=== PATIENT | male | born 1965 | race Caucasian/White ===

== ENCOUNTER 2020-07-15 19:50 | Emergency (ER) | payer MEDICARE, MEDICAID ==
[2020-07-15 20:23] VITALS: BP 129/85; PULSE 119
--- NOTE | 2020-07-15 20:58 | EDM.PDOC ---
ED HPI GENERAL MEDICAL PROBLEM - General Chief Complaint: Laceration Stated Complaint: fall Time Seen by Provider: 07/15/20 20:30 Source of Information: Reports: Other (Staff from Shelter) History Limitations: Reports: Physical Impairment (Pervasive Developmental Disorder) - History of Present Illness INITIAL COMMENTS - FREE TEXT/NARRATIVE: Jeffery fell at the Shelter this evening, landing on his face. He has a minor abrasion of the nose, and a 3.5 cm laceration of his forehead. There was no LOC. His tetanus vax status is to be determined. Treatments METAL PLATER: Reports: Dressing(s) - Related Data Allergies Allergy/AdvReac Type Severity Reaction Status Date / Time haloperidol [From Haldol] Allergy Irritabilit Verified 12/28/15 17:50 y haloperidol lactate Allergy Irritabilit Verified 12/28/15 17:50 [From Haldol] y Home Meds: Home Meds Levothyroxine Sodium [Synthroid] 75 mcg PO DAILY 12/28/15 [History] atorvaSTATin [Lipitor] 40 mg PO BEDTIME 12/28/15 [History] cloZAPine 100 mg PO BEDTIME 12/28/15 [History] cloZAPine [Clozapine] 200 mg PO BEDTIME 12/28/15 [History] Past Medical History HEENT History: Reports: Other (See Below) Other HEENT History: grinds teeth Cardiovascular History: Reports: High Cholesterol Gastrointestinal History: Reports: Chronic Constipation Genitourinary History: Reports: Other (See Below) Other Genitourinary History: wears diaper only for accidents Musculoskeletal History: Reports: Other (See Below) Other Musculoskeletal History: scoliosis Neurological History: Reports: Seizure Psychiatric History: Reports: Autism, Bipolar, Developmental Delay Endocrine/Metabolic History: Reports: Hypothyroidism Dermatologic History: Reports: Seborrheic Dermatitis Other Dermatologic History: rosacea, seborrheic dermatitis - Past Surgical History HEENT Surgical History: Reports: None Cardiovascular Surgical History: Reports: None Neurological Surgical History: Reports: Scoliosis Other Neurological Surgeries/Procedures: kyphoscoliosis Musculoskeletal Surgical History: Reports: Other (See Below) Other Musculoskeletal Surgeries/Procedures:: andrews rods 10/1983, tight heel cords, bruxism ED ROS GENERAL - Review of Systems Review Of Systems: Unable To Obtain Reason Not Obtained: TMR, mute ED EXAM, SKIN/RASH Exam: See Below Exam Limited By: Physical Impairment (PDD) General Appearance: Alert, WD/WN, No Apparent Distress, Anxious Eye Exam: Bilateral Eye: EOMI, Normal Inspection, PERRL Ears: Normal External Exam Nose: Other (minor abrasion accross rostrum of nose) Throat/Mouth: Normal Oropharynx, No Airway Compromise Head: Facial Tenderness (3.5 cm linear laceration of forehead into hair line) Neck: Normal Inspection Respiratory/Chest: Lungs Clear Cardiovascular: Regular Rate, Rhythm Back Exam: Other (scoliosis) Extremities: Non-Tender Neurological: Alert, CN II-XII Intact, No Motor/Sensory Deficits Psychiatric: Normal Affect, Anxious Skin: Warm, Dry ED SKIN PROCEDURES - Laceration/Wound Repair Midline Forehead Appearance: Subcutaneous Distal NVT: Neuro & Vascular Intact Skin Prep: Chlorhexidine (Hibiciens) Exploration/Debridement/Repair: Wound Explored, No Foreign Material Found Closed with: Steri-Strips Lac/Wound length In cm: 3.5 Sterile Dressing Applied: Provider Tetanus Status Addressed: Yes Complications: No Course - Vital Signs Text/Narrative:: Patient tolerated procedure well. Last Recorded V/S: Last Vital Signs Temp 36.3 C 07/15/20 20:07 Pulse 119 H 07/15/20 20:07 Resp 18 07/15/20 20:07 BP 129/85 07/15/20 20:07 Pulse Ox 98 07/15/20 20:07 Departure - Departure Time of Disposition: 20:46 Disposition: DC/[facility]fer to [facility] Condition: Good Clinical Impression: Laceration of forehead without complication Qualifiers: Encounter type: initial encounter Qualified Code(s): S01.81XA - Laceration without foreign body of other part of head, initial encounter - Discharge Information *PRESCRIPTION DRUG MONITORING PROGRAM REVIEWED*: Not Applicable *COPY OF PRESCRIPTION DRUG MONITORING REPORT IN PATIENT RICCO: Not Applicable Referrals: Concetta Jewell MD [Primary Care Provider] - Forms: ED Department Discharge Sepsis Event Note (ED) - Evaluation Sepsis Screening Result: No Definite Risk - Focused Exam Vital Signs: Vital Signs Temp Pulse Resp BP Pulse Ox 07/15/20 20:07 36.3 C 119 H 18 129/85 98 - Problem List & Annotations (1) Laceration of forehead without complication SNOMED Code(s): 434279775 Code(s): S01.81XA - LACERATION W/O FOREIGN BODY OF OTH PART OF HEAD, INIT ENCNTR Status: Acute Annotation/Comment:: Keep wound clean and dry, leave dressings and SteriStrips in place for 5-7 days. Qualifiers: Encounter type: initial encounter Qualified Code(s): S01.81XA - Laceration without foreign body of other part of head, initial encounter - Problem List Review Problem List Initiated/Reviewed/Updated: Yes - Assessment/Plan Plan: Follow up with PCP if needed.
== END 2020-07-15 20:51 ==
LOC: FB.ED 19:50
DX: S01.81XA Laceration without foreign body of other part of head, initial encounter (principal); E78.00 Pure hypercholesterolemia, unspecified; M41.9 Scoliosis, unspecified; F84.0 Autistic disorder; F31.9 Bipolar disorder, unspecified; E03.9 Hypothyroidism, unspecified; Z88.8 Allergy status to other drugs, medicaments and biological substances; Z79.899 Other long term (current) drug therapy; W19.XXXA Unspecified fall, initial encounter
CPT/HCPCS: 12013; 99282; 99284

== ENCOUNTER 2020-09-24 12:46 | Emergency (ER) | payer MEDICARE, MEDICAID ==
--- NOTE | 2020-09-24 13:08 | EDM.PDOC ---
ED HPI GENERAL MEDICAL PROBLEM - General Chief Complaint: Head Injury Time Seen by Provider: 09/24/20 13:05 Source of Information: Reports: Other (prison staff) History Limitations: Reports: Other (Patient with chronic condition with organic brain syndrome and cannot provide any information.) - History of Present Illness INITIAL COMMENTS - FREE TEXT/NARRATIVE: 54-year-old male with autism and organic brain syndrome who is a resident of a local intermediate who presents to the emergency department via intermediate staff after he fell coming out of the shower. He was being assisted by the intermediate staff and apparently he slipped and his legs buckled and he fell backwards striking his head on the shower floor which is tiled and sustained a laceration to his occiput. The bleeding has been controlled with direct pressure. There was no loss of consciousness. The patient did cry initially but now appears in minimal discomfort unless you touch the area. He is nonverbal and is really not able to give us any information. The intermediate staff gives all the history. The patient appears at 2-4/10 level of discomfort by Valdes Preeti faces when you touch the area. He is moving all of his extremities normally. He is responding normally and appears to be neurologically at his baseline according to the intermediate staff member. No other apparent injuries. This occurred at 12:05 PM and the patient was brought from the intermediate to the emergency department via private vehicle. There are no other associated signs or symptoms. There are no other modifying factors. Onset: Today (12:05 PM.) Duration: Constant Location: Reports: Head Quality: Reports: Other (Unknown) Improves with: Reports: None Worsens with: Reports: Other (Palpation) Context: Reports: Trauma Associated Symptoms: Reports: No Other Symptoms (No other symptoms known.) Treatments LEAD GENERATOR: Reports: Other (see below) - Related Data Allergies Allergy/AdvReac Type Severity Reaction Status Date / Time haloperidol lactate Allergy Unknown Irritabilit Verified 09/24/20 12:53 [From Haldol] y haloperidol [From Haldol] Allergy Irritabilit Verified 09/24/20 12:53 y Home Meds: Home Meds Levothyroxine Sodium [Synthroid] 75 mcg PO DAILY 12/28/15 [History] atorvaSTATin [Lipitor] 40 mg PO BEDTIME 12/28/15 [History] cloZAPine 100 mg PO BEDTIME 12/28/15 [History] cloZAPine [Clozapine] 200 mg PO BEDTIME 12/28/15 [History] Past Medical History HEENT History: Reports: Other (See Below) Other HEENT History: Bruxism Cardiovascular History: Reports: High Cholesterol Gastrointestinal History: Reports: Chronic Constipation Musculoskeletal History: Reports: Other (See Below) Other Musculoskeletal History: scoliosis Neurological History: Reports: Seizure Psychiatric History: Reports: Autism, Bipolar, Developmental Delay Endocrine/Metabolic History: Reports: Hypothyroidism Dermatologic History: Reports: Seborrheic Dermatitis Other Dermatologic History: rosacea, seborrheic dermatitis - Past Surgical History Neurological Surgical History: Reports: Scoliosis (Carson rods) Other Neurological Surgeries/Procedures: kyphoscoliosis Musculoskeletal Surgical History: Reports: Other (See Below) Other Musculoskeletal Surgeries/Procedures:: carson rods 10/1983 Social & Family History - Tobacco Use Tobacco Use Status *Q: Never Tobacco User - Caffeine Use Caffeine Use: Reports: None - Living Situation & Occupation Living situation: Reports: Extended Care Facility (Lives in a local intermediate.) Occupation: Disabled ED ROS GENERAL - Review of Systems Review Of Systems: Unable To Obtain (This was not able to be obtained from the patient secondary to his autism and verbal state. The intermediate staff was able to answer some questions and they were detailed below.) Reason Not Obtained: Autism. Nonverbal. Constitutional: Reports: No Symptoms HEENT: Reports: No Symptoms Respiratory: Reports: No Symptoms GI/Abdominal: Reports: No Symptoms : Reports: Incontinence (At times) Skin: Reports: Wound (Laceration to occipital scalp) Neurological: Reports: Other (No loss of consciousness.) Hematologic/Lymphatic: Reports: Other (No anticoagulation.) Immunologic: Reports: Other (Last tetanus immunization was in 2018, so he is up-to-date.) ED EXAM, HEAD INJURY - Physical Exam Exam: See Below Exam Limited By: No Limitations General Appearance: Alert, WD/WN, No Apparent Distress Head: Scalp Lacerations, Scalp Swelling, Scalp Tenderness Nexus Criteria: No: Posterior, Midline Cervical Tenderness, Evidence of Intoxication, Altered Level of Consciousness (Patient is appropriately responsive and interactive and neurologically at his baseline. Is no tenderness with palpation along his posterior neck and has full and active range of motion in his neck without any problems.), Focal Neurological Deficit, Painful Distraction Injuries Eyes: Bilateral Eye: EOMI, Normal Inspection Ears: Normal External Exam, Hearing Grossly Normal Nose: Normal Inspection, Normal Mucousa, No Blood Throat/Mouth: Normal Inspection, Normal Lips, Normal Oropharynx, Normal Voice, No Airway Compromise Neck: Non-Tender, Full Range of Motion, Normal Alignment, Normal Inspection Respiratory: No Respiratory Distress, Lungs Clear, Normal Breath Sounds, No Accessory Muscle Use, Chest Non-Tender Cardiovascular: Normal Peripheral Pulses, Regular Rate, Rhythm, No Murmur GI/Abdominal Exam: Normal Bowel Sounds, Soft, Non-Tender Back Exam: No: Paraspinal Tenderness, Vertebral Tenderness Extremities: Normal Inspection, Normal Range of Motion, Non-Tender, No Pedal Edema, Normal Capillary Refill Neurologic: air deodorizer servicer II-XII nml As Tested, No Motor/Sensory Deficits, Alert Skin: Normal Color, Other (5 cm laceration to occipital scalp to the subcutaneous tissue. The galea was intact.) ED LACERATION/WOUND & LETTY PROC - Laceration/Wound Repair Midline Occipital Head Appearance: Subcutaneous, Clean Distal NVT: Neuro & Vascular Intact Anesthetic Type: Other (None) Skin Prep: Saline Exploration/Debridement/Repair: Wound Explored (No crepitus. No depression. No foreign bodies.) Closed with: Zee # of Sutures: 6 (Laceration is 5 centimeters) Tetanus Status Addressed: Other (Patient was up-to-date with last tetanus immunization in 2018.) Complications: No Course - Vital Signs Last Recorded V/S: Last Vital Signs Temp 36.3 C 09/24/20 12:54 Pulse 101 H 09/24/20 12:54 Resp 20 09/24/20 12:54 BP 134/74 09/24/20 12:54 Pulse Ox - Orders/Labs/Meds Orders: Active Orders 24 hr Category Date Time Status Vaccines to be Administered [RC] PER UNIT ROUTINE Care 09/24/20 13:26 Active Meds: Medications Discontinued Medications Generic Name Dose Route Start Last Admin Trade Name Freq PRN Reason Stop Dose Admin Diphtheria/Tetanus/Acell Pertussis 0.5 ml 09/24/20 13:25 09/24/20 13:31 Boostrix IM 09/24/20 13:26 Not Given .ONCE ONE - Re-Assessments/Exams Free Text/Narrative Re-Assessment/Exam: 09/24/20 13:20: After informed verbal consent from the intermediate staff, the patient's scalp wound was closed using skin zee. 6 zee were applied. No anesthesia was used secondary to the patient not able as tolerated and they're being really no difference in the amount of pain and discomfort associated with placing the anesthesia and placing the zee. There were no concerning neurologic signs or symptoms. The patient is awake and alert and appropriately responsive and interactive and at his baseline. Therefore, no head CT or cervical spine CT was needed or indicated. I discussed this with the intermediate staff and they were in agreement with this as well. Wound care instructions were given. Staple removal in 7 days. Departure - Departure Time of Disposition: 13:40 Disposition: DC/Tfer to [facility] Condition: Good (Improved) Clinical Impression: Fall from slipping on wet surface Qualifiers: Encounter type: initial encounter Qualified Code(s): W01.0XXA - Fall on same level from slipping, tripping and stumbling without subsequent striking against object, initial encounter Head contusion Qualifiers: Encounter type: initial encounter Contusion of head detail: scalp Qualified Code(s): S00.03XA - Contusion of scalp, initial encounter Occipital scalp laceration Qualifiers: Encounter type: initial encounter Qualified Code(s): S01.01XA - Laceration without foreign body of scalp, initial encounter - Discharge Information Instructions: Fall Prevention in the Home, Adult, [id number], Head Injury, Adult, [id number], Sutures, Zee, or Adhesive Wound Closure, [id number] Forms: ED Department Discharge Additional Instructions: You should wash his hair today to get all the blood out and then after today do not get the wound area wet for the next 3 days. After 3 days, you may get the wound wet but do not immerse the wound in water until the zee are out. Staple removal in 7 days. Back to the emergency department for vomiting, change in his level of responsiveness, any signs of infection or any other concerning sign or symptom. Sepsis Event Note (ED) - Evaluation Sepsis Screening Result: No Definite Risk - Focused Exam Vital Signs: Vital Signs Temp Pulse Resp BP 09/24/20 12:54 36.3 C 101 H 20 134/74 - My Orders Last 24 Hours: My Active Orders 09/24/20 13:26 Vaccines to be Administered [RC] PER UNIT ROUTINE - Assessment/Plan Last 24 Hours: My Active Orders 09/24/20 13:26 Vaccines to be Administered [RC] PER UNIT ROUTINE
[2020-09-24] MEDS ORDERED: Diphtheria,Pertussis(Acell),Tetanus Vaccine 0.5 ML Syringe IM ONE (13:25)
[2020-09-24 13:42] VITALS: BP 123/80; PULSE 102
== END 2020-09-24 13:50 ==
LOC: FB.ED 12:46
DX: S01.01XA Laceration without foreign body of scalp, initial encounter (principal); E78.00 Pure hypercholesterolemia, unspecified; E03.9 Hypothyroidism, unspecified; M41.9 Scoliosis, unspecified; F84.0 Autistic disorder; Z88.8 Allergy status to other drugs, medicaments and biological substances; Z79.899 Other long term (current) drug therapy; W01.10XA Fall on same level from slipping, tripping and stumbling with subsequent striking against unspecified object, initial encounter
CPT/HCPCS: 12002; 99282; 99282-25

== ENCOUNTER 2020-11-16 14:31 | Emergency (ER) | payer MEDICARE, MEDICAID ==
[2020-11-16] MEDS ORDERED: traMADol 50 MG Tab PO ONE (14:32)
[2020-11-16] MEDS: LORazepam 2 MG/ML SDV IM STA (15:10)
[2020-11-16] MEDS: OLANZapine 10 MG Vial IM STA (15:10)
--- NOTE | 2020-11-16 15:12 | EDM.PDOC ---
ED HPI GENERAL MEDICAL PROBLEM - General Stated Complaint: FELL Time Seen by Provider: 11/16/20 14:45 Source of Information: Reports: Other (caregiver) History Limitations: Reports: No Limitations - History of Present Illness INITIAL COMMENTS - FREE TEXT/NARRATIVE: Patient presented to the ED because of head and facial injury after falling. He apparently tripped and fell face down to the carpet. There is no LOC after the fall. There is nasal deformity and nasal bleed. History taking is difficult because patient is non-communicative and agitated. - Related Data Allergies Allergy/AdvReac Type Severity Reaction Status Date / Time haloperidol lactate Allergy Unknown Irritabilit Verified 11/16/20 16:28 [From Haldol] y haloperidol [From Haldol] Allergy Irritabilit Verified 11/16/20 16:28 y Home Meds: Home Meds Levothyroxine Sodium [Synthroid] 75 mcg PO DAILY 12/28/15 [History] atorvaSTATin [Lipitor] 20 mg PO BEDTIME 12/28/15 [History] cloZAPine 100 mg PO DAILY 12/28/15 [History] cloZAPine [Clozapine] 200 mg PO BEDTIME 12/28/15 [History] Benztropine [Cogentin] 0.5 mg PO BID 09/24/20 [History] Cholecalciferol (Vitamin D3) [Vitamin D3] 1,000 unit PO DAILY 09/24/20 [History] Docusate Sodium [Colace] 100 mg PO BID 09/24/20 [History] KCl/Na Sulf,Bicarb,Cl/PEG 3351 [GoLytely] 15 ml PO BID 09/24/20 [History] LORazepam [Lorazepam] 2 mg DAILY PRN 09/24/20 [History] Lanolin/Mineral Oil [Eucerin Original Lotion] 1 applic DAILY 09/24/20 [History] Menthol/Selenium Sulfide [Selsun Blue 1% Shampoo] 1 applic MOTH 09/24/20 [History] Multivits w-Fe,Other Min/Lut [Theratrum Complete] 1 each PO BEDTIME 09/24/20 [History] bisacodyL [Dulcolax] 10 mg RC Q3D PRN 09/24/20 [History] Magnesium Hydroxide [Milk of Magnesia] 15 ml PO BEDTIME 11/16/20 [History] Magnesium Hydroxide [Milk of Magnesia] 120 ml PO ASDIRECTED PRN 11/16/20 [History] traMADol [Ultram] 50 mg PO Q6H PRN #15 tab 11/16/20 [Rx] Past Medical History HEENT History: Reports: Other (See Below) Other HEENT History: Bruxism Cardiovascular History: Reports: High Cholesterol Gastrointestinal History: Reports: Chronic Constipation Genitourinary History: Reports: Other (See Below) Other Genitourinary History: wears diaper only for accidents Musculoskeletal History: Reports: Other (See Below) Other Musculoskeletal History: scoliosis Neurological History: Reports: Seizure Psychiatric History: Reports: Autism, Bipolar, Developmental Delay Endocrine/Metabolic History: Reports: Hypothyroidism Dermatologic History: Reports: Seborrheic Dermatitis Other Dermatologic History: rosacea, seborrheic dermatitis - Past Surgical History Neurological Surgical History: Reports: Scoliosis (Carson rods) Other Musculoskeletal Surgeries/Procedures:: carson rods 10/1983 Social & Family History - Family History Family Medical History: No Pertinent Family History - Caffeine Use Caffeine Use: Reports: None - Living Situation & Occupation Living situation: Reports: Extended Care Facility (Lives in a local snf.) Occupation: Disabled ED ROS GENERAL - Review of Systems Review Of Systems: See Below Constitutional: Reports: No Symptoms HEENT: Reports: Nosebleed, Nose Pain Respiratory: Reports: No Symptoms Cardiovascular: Reports: No Symptoms Endocrine: Reports: No Symptoms GI/Abdominal: Reports: No Symptoms : Reports: No Symptoms Musculoskeletal: Reports: No Symptoms Skin: Reports: No Symptoms Neurological: Reports: No Symptoms ED EXAM, HEAD INJURY - Physical Exam Exam: See Below Exam Limited By: No Limitations General Appearance: Other (agitated) Head: Atraumatic, Normocephalic Ears: Normal External Exam, Normal Canal, Hearing Grossly Normal, Normal TMs Nose: Normal Inspection, Normal Mucousa, Nasal Tenderness Throat/Mouth: Normal Inspection, Normal Lips, Normal Teeth, Normal Gums, Normal Oropharynx, Normal Voice Neck: Non-Tender, Full Range of Motion, Normal Alignment, Normal Inspection Respiratory: No Respiratory Distress, Lungs Clear, Normal Breath Sounds, No Accessory Muscle Use, Chest Non-Tender Cardiovascular: Normal Peripheral Pulses, Regular Rate, Rhythm, No Edema, No Gallop, No JVD, No Murmur GI/Abdominal Exam: Normal Bowel Sounds, Soft, Non-Tender, No Organomegaly Back Exam: Normal Inspection, Full Range of Motion Extremities: Normal Inspection, Normal Range of Motion, Non-Tender Neurologic: No Motor/Sensory Deficits, Alert, Normal Mood/Affect, Oriented x 3 Skin: Normal Color, Warm/Dry Course - Vital Signs Text/Narrative:: head and Facial CT-see result Ativan 1 mg IM x1 Zyprexa 10 mg IM x1 Ativan 3 mg po x1 Versed liquid 4 mg po x1 Consult with Dr Bojorquez ENT will follow up tomorrow Last Recorded V/S: Last Vital Signs Temp 37.2 C 11/16/20 14:31 Pulse 101 H 11/16/20 18:58 Resp 18 11/16/20 18:58 BP 109/67 11/16/20 18:58 Pulse Ox 97 11/16/20 18:58 - Orders/Labs/Meds Orders: Active Orders 24 hr Category Date Time Status Head wo Cont [CT] Stat Exams 11/16/20 14:53 Taken Max Facial Sinus wo Cont [CT] Stat Exams 11/16/20 14:53 Taken Meds: Medications Discontinued Medications Generic Name Dose Route Start Last Admin Trade Name Freq PRN Reason Stop Dose Admin Lorazepam 1 mg 11/16/20 14:53 11/16/20 15:10 Lorazepam 2 Mg/Ml Sdv IM 11/16/20 14:54 1 mg NOW STA Administration Lorazepam 3 mg 11/16/20 15:41 11/16/20 15:50 Lorazepam 1 Mg Tab PO 11/16/20 15:42 3 mg ONETIME ONE Administration Midazolam HCl 4 mg 11/16/20 16:26 11/16/20 16:30 Midazolam Oral Soln 10 Mg/5 Ml Ud Cup PO 11/16/20 16:27 4 mg NOW STA Administration Olanzapine 10 mg 11/16/20 14:53 11/16/20 15:10 Olanzapine 10 Mg Vial IM 11/16/20 14:54 10 mg NOW STA Administration Departure - Departure Time of Disposition: 18:45 Disposition: Home, Self-Care 01 Condition: Good Clinical Impression: Nasal fracture - Discharge Information Prescriptions: traMADol [Ultram] 50 mg PO Q6H PRN #15 tab PRN Reason: Pain Instructions: Nasal Fracture, [id number], Tramadol tablets, Head Injury, Adult, [id number] Referrals: John Ramirez MD [Primary Care Provider] - Forms: ED Department Discharge Additional Instructions: Please read discharge instructions on nasal fracture Take tramadol 50 mg with tylenol 500 mg every 6 hours as needed for pain Call ENT c/o Dr Bojorquez for a follow up visit @ [phone] - My Orders Last 24 Hours: My Active Orders 11/16/20 14:53 Head wo Cont [CT] Stat Max Facial Sinus wo Cont [CT] Stat - Assessment/Plan Last 24 Hours: My Active Orders 11/16/20 14:53 Head wo Cont [CT] Stat Max Facial Sinus wo Cont [CT] Stat
[2020-11-16] MEDS: LORazepam 1 MG Tab PO ONE (15:50)
[2020-11-16] MEDS: Midazolam Oral Soln 10 MG/5 ML UD Cup PO STA (16:30)
[2020-11-16 19:21] VITALS: BP 109/67; PULSE 101
== END 2020-11-16 19:00 | disposition home or self-care (01) ==
LOC: FB.ED 14:31
DX: S02.2XXA Fracture of nasal bones, initial encounter for closed fracture (principal); E78.00 Pure hypercholesterolemia, unspecified; M41.9 Scoliosis, unspecified; E03.9 Hypothyroidism, unspecified; Z88.8 Allergy status to other drugs, medicaments and biological substances; Z79.899 Other long term (current) drug therapy; W01.0XXA Fall on same level from slipping, tripping and stumbling without subsequent striking against object, initial encounter
CPT/HCPCS: 70450; 70486; 96372; 99283; A9270; J2060; J3490

== ENCOUNTER 2021-04-22 18:46 | Emergency (ER) | payer MEDICARE, MEDICAID ==
[2021-04-22 18:55] VITALS: PULSE 84
--- NOTE | 2021-04-22 19:31 | EDM.PDOC ---
ED HPI GENERAL MEDICAL PROBLEM - General Chief Complaint: ENT Problem Stated Complaint: BROKEN NOSE Time Seen by Provider: 04/22/21 19:10 Source of Information: Reports: Other (Caregivers from shelter) History Limitations: Reports: Other (Patient has severe autism, mental retardation, nonverbal) - History of Present Illness INITIAL COMMENTS - FREE TEXT/NARRATIVE: 55-year-old gentleman with past medical history significant for several falls fell while trying to get up from dinner and injured his nose. Patient's past medical history significant for severe autism, severe mental retardation, he is nonverbal. He has a history of falling. He has had several surgeries due to injuries from falling. He did express pain due to the fact that he had some tears after his fall. He was very upset. Not lose consciousness. - Related Data Allergies Allergy/AdvReac Type Severity Reaction Status Date / Time haloperidol lactate Allergy Unknown Irritabilit Verified 04/22/21 18:52 [From Haldol] y haloperidol [From Haldol] Allergy Irritabilit Verified 04/22/21 18:52 y Home Meds: Home Meds Levothyroxine Sodium [Synthroid] 75 mcg PO DAILY 12/28/15 [History] atorvaSTATin [Lipitor] 20 mg PO BEDTIME 12/28/15 [History] cloZAPine [Clozapine] 200 mg PO BEDTIME 12/28/15 [History] Benztropine [Cogentin] 0.5 mg PO BID 09/24/20 [History] Cholecalciferol (Vitamin D3) [Vitamin D3] 1,000 unit PO DAILY 09/24/20 [History] Docusate Sodium [Colace] 100 mg PO BID 09/24/20 [History] LORazepam [Lorazepam] 2 mg DAILY PRN 09/24/20 [History] Lanolin/Mineral Oil [Eucerin Original Lotion] 1 applic DAILY 09/24/20 [History] Menthol/Selenium Sulfide [Selsun Blue 1% Shampoo] 1 applic MOTH 09/24/20 [History] Multivits w-Fe,Other Min/Lut [Theratrum Complete] 1 each PO BEDTIME 09/24/20 [History] bisacodyL [Dulcolax] 10 mg RC Q3D PRN 09/24/20 [History] Magnesium Hydroxide [Milk of Magnesia] 15 ml PO BEDTIME 11/16/20 [History] Magnesium Hydroxide [Milk of Magnesia] 120 ml PO ASDIRECTED PRN 11/16/20 [History] traMADol [Ultram] 50 mg PO Q6H PRN #15 tab 11/16/20 [Rx] Famotidine 20 mg PO BID 04/22/21 [History] Lactulose 45 gm PO BID 04/22/21 [History] OLANZapine [Zyprexa] 5 mg PO ASDIRECTED PRN 04/22/21 [History] polyethylene glycoL 3350 [MiraLAX] 17 gm PO DAILY 04/22/21 [History] Past Medical History HEENT History: Reports: Other (See Below) Other HEENT History: Bruxism Cardiovascular History: Reports: High Cholesterol Gastrointestinal History: Reports: Chronic Constipation Genitourinary History: Reports: Urinary Incontinence, Other (See Below) Other Genitourinary History: wears diaper only for accidents Musculoskeletal History: Reports: Other (See Below) Other Musculoskeletal History: scoliosis Neurological History: Reports: Seizure Psychiatric History: Reports: Autism, Bipolar, Developmental Delay Endocrine/Metabolic History: Reports: Hypothyroidism Dermatologic History: Reports: Seborrheic Dermatitis Other Dermatologic History: rosacea, seborrheic dermatitis - Past Surgical History HEENT Surgical History: Reports: None Cardiovascular Surgical History: Reports: None Neurological Surgical History: Reports: Scoliosis Other Neurological Surgeries/Procedures: kyphoscoliosis Musculoskeletal Surgical History: Reports: Other (See Below) Other Musculoskeletal Surgeries/Procedures:: andrews rods 10/1983 Social & Family History - Family History Family Medical History: No Pertinent Family History - Tobacco Use Tobacco Use Status *Q: Never Tobacco User - Caffeine Use Caffeine Use: Reports: None - Recreational Drug Use Recreational Drug Use: No - Living Situation & Occupation Living situation: Reports: Extended Care Facility (Lives in a local shelter.) Occupation: Disabled Review of Systems - Review of Systems Review Of Systems: See Below Constitutional: Reports: No Symptoms Eyes: Reports: No Symptoms Ears: Reports: No Symptoms Nose: Reports: Pain, Previous Injury Mouth/Throat: Reports: No Symptoms Respiratory: Reports: No Symptoms Cardiovascular: Reports: No Symptoms GI/Abdominal: Reports: No Symptoms Genitourinary: Reports: No Symptoms Musculoskeletal: Reports: Neck Pain Skin: Reports: Bruising, Lesions Neurological: Reports: No Symptoms, Other Psychiatric: Reports: Confusion, Mood Lability, Anxiety, Agitation ED EXAM, GENERAL - Physical Exam Exam: See Below Exam Limited By: Uncooperative General Appearance: Alert, Anxious Eye Exam: Bilateral Eye: EOMI Nose: No Blood, Nasal Deformity, Other (Patient of the bilateral facial bones shows no movement of the bones but the patient did react by pushing my hands away). No: Nasal Drainage Throat/Mouth: Other (Abrasion on the bridge of the nose with ecchymosis, swelling, the nose/septum are deviated towards the right, no bleeding or discharge at this time) Head: Other (Visual inspection shows several scars on the superior centerline of the forehead from previous falls/injuries) Neck: Other (Surgical scar just to the right of center line anterior neck from history of cervical spinal surgery, palpation of the anterior, lateral, posterior neck without significant reaction from the patient) Respiratory/Chest: No Respiratory Distress, Lungs Clear Cardiovascular: Normal Peripheral Pulses, Regular Rate, Rhythm, No Murmur, Other (Heart sounds are distant and difficult to auscultate) Peripheral Pulses: 2+: Radial (L), Radial (R), Dorsalis Pedis (L), Dorsalis Pedis (R) GI/Abdominal: Normal Bowel Sounds, Non-Tender Back Exam: Normal Inspection Extremities: Normal Inspection Neurological: Other (Caregivers report baseline. Patient reacts appropriately t o questions and physical exam and was able to turn his head and gaze of his eyes to follow my finger with large motions) Psychiatric: Anxious, Other (Patient has history of severe mental retardation and autism, patient is at baseline according to caregivers) Skin Exam: Other (Superficial abrasion on the forehead and bridge of the nose) Course - Vital Signs Text/Narrative:: Patient was able to turn his head and alter gaze of his eyes appropriately. Patient was able to drink a cup of water without discomfort or choking. Last Recorded V/S: Last Vital Signs Temp 36.9 C 04/22/21 18:46 Pulse 84 04/22/21 18:46 Resp 18 04/22/21 18:46 BP Pulse Ox Departure - Departure Time of Disposition: 19:35 Disposition: Home, Self-Care 01 Clinical Impression: Nasal fracture, Facial contusion - Discharge Information *PRESCRIPTION DRUG MONITORING PROGRAM REVIEWED*: Not Applicable *COPY OF PRESCRIPTION DRUG MONITORING REPORT IN PATIENT RICCO: Not Applicable Instructions: Nasal Fracture, [id number], Contusion, [id number] Additional Instructions: You can use ice and you can alternate Tylenol and ibuprofen giving 1 medication every 2 hours for pain while awake. Follow-up with primary care physician if patient has continuing symptoms of pain, discomfort, bleeding, difficulty breathing. Sepsis Event Note (ED) - Evaluation Sepsis Screening Result: No Definite Risk - Focused Exam Vital Signs: Vital Signs Temp Pulse Resp 04/22/21 18:46 36.9 C 84 18
== END 2021-04-22 19:45 | disposition home or self-care (01) ==
LOC: FB.ED 18:46
DX: S02.2XXA Fracture of nasal bones, initial encounter for closed fracture (principal); S00.81XA Abrasion of other part of head, initial encounter; E78.00 Pure hypercholesterolemia, unspecified; E03.9 Hypothyroidism, unspecified; Z88.8 Allergy status to other drugs, medicaments and biological substances; Z79.899 Other long term (current) drug therapy; W01.0XXA Fall on same level from slipping, tripping and stumbling without subsequent striking against object, initial encounter
CPT/HCPCS: 99283

== ENCOUNTER 2022-02-25 12:51 | Emergency (ER) | payer MEDICARE, MEDICAID ==
[2022-02-25] MEDS ORDERED: LORazepam 1 MG Tab PO ONE ×2 (13:13→13:57)
[2022-02-25] MEDS ORDERED: LORazepam 1 MG Tab ONE (14:00)
[2022-02-25 16:12] VITALS: BP 139/92; PULSE 102
== END 2022-02-25 15:15 | disposition home or self-care (01) ==
LOC: FB.ED 12:51
DX: S00.03XA Contusion of scalp, initial encounter (principal); E78.00 Pure hypercholesterolemia, unspecified; E03.9 Hypothyroidism, unspecified; Z79.899 Other long term (current) drug therapy; Z88.5 Allergy status to narcotic agent; W01.0XXA Fall on same level from slipping, tripping and stumbling without subsequent striking against object, initial encounter
CPT/HCPCS: 99283; 99285; A9270-GY

== ENCOUNTER 2023-02-20 14:03 | Inpatient (IN) | payer MEDICARE, MEDICAID ==
[2023-02-20] MEDS ORDERED: Flumazenil 0.1 MG/ML 5 ML MDV IVPUSH ONE ×4 (14:16→18:37)
[2023-02-20 14:53] LABS: BILIRUBIN,URINE NEGATIVE (NEGATIVE); GLUCOSE,URINE 100 mg/dL (NORMAL); KETONES,URINE NEGATIVE (NEGATIVE); LEUKOCYTE ESTERASE,URINE NEGATIVE (NEGATIVE); NITRITE,URINE NEGATIVE (NEGATIVE); OCCULT BLOOD,URINE NEGATIVE (NEGATIVE); PROTEIN,URINE NEGATIVE (NEGATIVE); UROBILINOGEN,URINE NORMAL (NEGATIVE)
[2023-02-20 14:55] LABS: APPEARANCE,URINE SLIGHTLY CLOUDY (CLEAR); BACTERIA,URINE RARE (NS); COLOR,URINE YELLOW (YELLOW); RBC,URINE 0-5 (0-5); SQUAMOUS EPITHELIAL CELLS,UR RARE (NS,R,O); WBC,URINE 0-5 (0-5)
[2023-02-20 14:56] LABS: AMORPHOUS SEDIMENT,URINE FEW
[2023-02-20 15:28] LABS: BASOPHILS PERCENT AUTO 0.2 % (0.3-3.8); BLOOD UREA NITROGEN,BUN 20 mg/dL (7-18); CALCIUM 9.6 mg/dL (8.6-10.2); CARBON DIOXIDE,CO2 32 mmol/L (21-32); CHLORIDE,CL 106 mmol/L (100-110); CREATININE 0.8 mg/dL (0.70-1.30); EOSINOPHILS PERCENT AUTO 0.1 % (0.1-6.8); ESTIMATED GFR 103 mL/min (>60); GLUCOSE RANDOM 121 mg/dL (80-116); HEMOGLOBIN 14.3 g/dL (12.9-17.7); LYMPHOCYTES ABSOLUTE AUTO 1.9 x10-3/uL (0.5-4.5); LYMPHOCYTES PERCENT AUTO 10.6 % (15.8-45.3); MEAN CORPUSCULAR HEMOGLOBIN 29.5 pg (27.0-33.3); MEAN CORPUSCULAR HGB CONC 33.2 g/dL (28.7-35.3); MEAN PLATELET VOLUME 8.7 fL (6.7-11.0); MONOCYTES ABSOLUTE AUTO 0.9 x10-3/uL (0.0-1.2); MONOCYTES PERCENT AUTO 5.1 % (5.5-15.2); NEUTROPHILS ABSOLUTE AUTO 14.7 x10-3/uL (1.7-6.9); PLATELET COUNT,PLT 169 x10(3)uL (117-477); POTASSIUM,K 3.9 mmol/L (3.5-5.3); RED BLOOD CELL COUNT 4.83 x10(6)uL (3.90-5.90); RED CELL DISTRIBUTION WIDTH 14.3 % (12.4-15.0); SODIUM,NA 145 mmol/L (135-145); WHITE BLOOD CELL COUNT,WBC 17.5 x10-3/uL (3.2-10.1)
[2023-02-20 15:35] LABS: A/G RATIO 0.8; ALANINE AMINOTRANSFERASE,ALT 60 U/L (12-36); ALBUMIN 3.3 g/dL (3.5-5.2); ALKALINE PHOSPHATASE 162 IU/L (56-112); ASPARTATE AMNIOTRANSFERASE,AST 42 IU/L (5-25); BILIRUBIN TOTAL 0.5 mg/dL (0.1-1.3); PROTEIN TOTAL,TP 7.4 g/dL (6.0-8.0)
[2023-02-20] MEDS ORDERED: Sodium Chloride 0.9% 1,000 ML IV ONE (15:36)
[2023-02-20] MEDS ORDERED: Iopamidol 755 Mg/ML 100 ML Bottle IV ONE (16:44)
[2023-02-20] MEDS: cefTRIAXone 1 GM Vial IVPUSH SCH (18:19)
[2023-02-20] MEDS: Azithromycin 500 MG in Sodium Chloride 0.9% 250 ML IV SCH (18:19)
[2023-02-20] MEDS ORDERED: Acetaminophen 325 MG Tab PO PRN (18:37)
[2023-02-20] MEDS ORDERED: Haloperidol Lactate 5 MG/ML SDV IM PRN (18:46)
[2023-02-20] MEDS: Albuterol 0.083% 2.5 MG/3 ML Neb Soln NEB SCH (20:58)
[2023-02-20] MEDS: Enoxaparin 40 MG/0.4 ML Syringe SUBCUT SCH (20:58)
[2023-02-20] MEDS: Acetaminophen 650 MG Supp RECTAL PRN (23:46)
[2023-02-21] MEDS: Albuterol 0.083% 2.5 MG/3 ML Neb Soln NEB SCH ×4 (06:38→20:40)
[2023-02-21 06:47] LABS: BASOPHILS PERCENT AUTO 0.2 % (0.3-3.8); EOSINOPHILS PERCENT AUTO 0.1 % (0.1-6.8); HEMATOCRIT 37.3 % (38.3-50.1); HEMOGLOBIN 12.4 g/dL (12.9-17.7); LYMPHOCYTES ABSOLUTE AUTO 1.8 x10-3/uL (0.5-4.5); LYMPHOCYTES PERCENT AUTO 18.4 % (15.8-45.3); MEAN CORPUSCULAR HEMOGLOBIN 29.8 pg (27.0-33.3); MEAN CORPUSCULAR HGB CONC 33.2 g/dL (28.7-35.3); MEAN CORPUSCULAR VOLUME 89.9 fL (80.8-98.7); MEAN PLATELET VOLUME 8.9 fL (6.7-11.0); MONOCYTES ABSOLUTE AUTO 0.6 x10-3/uL (0.0-1.2); MONOCYTES PERCENT AUTO 6.3 % (5.5-15.2); NEUTROPHILS ABSOLUTE AUTO 7.4 x10-3/uL (1.7-6.9); PLATELET COUNT,PLT 161 x10(3)uL (117-477); RED BLOOD CELL COUNT 4.15 x10(6)uL (3.90-5.90); RED CELL DISTRIBUTION WIDTH 14.4 % (12.4-15.0); WHITE BLOOD CELL COUNT,WBC 9.9 x10-3/uL (3.2-10.1)
[2023-02-21] MEDS ORDERED: Non-Formulary Medication 1 Each (Lanolin/Mineral Oil [Eucerin Original Lotion] 250 ML Loti TOP SCH (09:00)
[2023-02-21] MEDS ORDERED: Bisacodyl 10 MG Supp RECTAL PRN (11:24)
[2023-02-21] MEDS: CLOZAPINE 100 MG SCH (14:07)
[2023-02-21] MEDS: Benztropine 0.5 MG Tab SCH ×2 (14:08→21:18)
[2023-02-21] MEDS: Acetaminophen 650 MG Supp RECTAL PRN (14:09)
[2023-02-21] MEDS: Sodium Chloride 0.9% 1,000 ML IV SCH (14:10)
[2023-02-21] MEDS: Sodium Chloride 0.9% 10 ML Syringe FLUSH PRN ×2 (14:14→17:24)
[2023-02-21] MEDS ORDERED: LORazepam 2 MG/ML SDV IVPUSH ONE (15:15)
[2023-02-21] MEDS ORDERED: cefTRIAXone 1 GM Vial IVPUSH SCH (16:00)
[2023-02-21] MEDS ORDERED: Azithromycin 500 MG in Sodium Chloride 0.9% 250 ML IV SCH (16:00)
[2023-02-21] MEDS ORDERED: Gadoteridol 279.3 MG/ML 10 ML SDV IVPUSH ONE (16:03)
[2023-02-21] MEDS: cefTRIAXone 1 GM Vial IVPUSH SCH (17:25)
[2023-02-21] MEDS: Azithromycin 500 MG in Sodium Chloride 0.9% 250 ML IV SCH (17:31)
[2023-02-21] MEDS: Enoxaparin 40 MG/0.4 ML Syringe SUBCUT SCH (20:40)
[2023-02-22] MEDS: Sodium Chloride 0.9% 1,000 ML IV SCH ×2 (05:20→21:25)
[2023-02-22] MEDS: Albuterol 0.083% 2.5 MG/3 ML Neb Soln NEB SCH ×4 (06:27→21:33)
[2023-02-22 06:55] LABS: BASOPHILS ABSOLUTE AUTO 0.1 x10-3/uL (0.0-0.3); BASOPHILS PERCENT AUTO 0.7 % (0.3-3.8); EOSINOPHILS PERCENT AUTO 0.1 % (0.1-6.8); HEMATOCRIT 38.6 % (38.3-50.1); HEMOGLOBIN 12.9 g/dL (12.9-17.7); LYMPHOCYTES ABSOLUTE AUTO 1.5 x10-3/uL (0.5-4.5); LYMPHOCYTES PERCENT AUTO 18.2 % (15.8-45.3); MEAN CORPUSCULAR HEMOGLOBIN 29.8 pg (27.0-33.3); MEAN CORPUSCULAR HGB CONC 33.4 g/dL (28.7-35.3); MEAN CORPUSCULAR VOLUME 89.2 fL (80.8-98.7); MEAN PLATELET VOLUME 8.3 fL (6.7-11.0); MONOCYTES ABSOLUTE AUTO 0.6 x10-3/uL (0.0-1.2); MONOCYTES PERCENT AUTO 7.7 % (5.5-15.2); NEUTROPHILS ABSOLUTE AUTO 5.9 x10-3/uL (1.7-6.9); NEUTROPHILS PERCENT AUTO 73.3 % (40.3-71.8); PLATELET COUNT,PLT 185 x10(3)uL (117-477); RED BLOOD CELL COUNT 4.33 x10(6)uL (3.90-5.90); RED CELL DISTRIBUTION WIDTH 13.8 % (12.4-15.0); WHITE BLOOD CELL COUNT,WBC 8.1 x10-3/uL (3.2-10.1)
[2023-02-22] MEDS: CLOZAPINE 100 MG PO SCH (09:31)
[2023-02-22] MEDS: Benztropine 0.5 MG Tab PO SCH ×2 (09:35→21:32)
[2023-02-22] MEDS: metroNIDAZOLE/Normal Saline 500 MG in Premix Bag 1 BAG IV SCH ×2 (09:49→17:25)
[2023-02-22] MEDS: Levothyroxine 75 MCG Tab PO SCH (13:23)
[2023-02-22] MEDS: CLOZAPINE 100 MG SCH (15:21)
[2023-02-22] MEDS: cefTRIAXone 1 GM Vial IVPUSH SCH (18:11)
[2023-02-22] MEDS: Enoxaparin 40 MG/0.4 ML Syringe SUBCUT SCH (21:33)
[2023-02-22] MEDS: atorvaSTATin 20 MG Tab PO SCH (21:33)
[2023-02-23] MEDS: metroNIDAZOLE/Normal Saline 500 MG in Premix Bag 1 BAG IV SCH ×3 (01:15→16:17)
[2023-02-23] MEDS: Levothyroxine 75 MCG Tab PO SCH (06:24)
[2023-02-23 06:36] LABS: BASOPHILS PERCENT AUTO 0.4 % (0.3-3.8); EOSINOPHILS PERCENT AUTO 0.1 % (0.1-6.8); HEMATOCRIT 37.7 % (38.3-50.1); HEMOGLOBIN 12.7 g/dL (12.9-17.7); LYMPHOCYTES ABSOLUTE AUTO 1.8 x10-3/uL (0.5-4.5); MEAN CORPUSCULAR HEMOGLOBIN 29.7 pg (27.0-33.3); MEAN CORPUSCULAR HGB CONC 33.7 g/dL (28.7-35.3); MEAN CORPUSCULAR VOLUME 88.1 fL (80.8-98.7); MONOCYTES ABSOLUTE AUTO 0.7 x10-3/uL (0.0-1.2); NEUTROPHILS ABSOLUTE AUTO 5.2 x10-3/uL (1.7-6.9); NEUTROPHILS PERCENT AUTO 67.5 % (40.3-71.8); PLATELET COUNT,PLT 189 x10(3)uL (117-477); RED BLOOD CELL COUNT 4.28 x10(6)uL (3.90-5.90); RED CELL DISTRIBUTION WIDTH 13.8 % (12.4-15.0); WHITE BLOOD CELL COUNT,WBC 7.8 x10-3/uL (3.2-10.1)
[2023-02-23 06:45] LABS: BLOOD UREA NITROGEN,BUN 13 mg/dL (7-18); BUN/CREATININE RATIO 16.3 (9-20); CARBON DIOXIDE,CO2 29 mmol/L (21-32); CHLORIDE,CL 110 mmol/L (100-110); CREATININE 0.8 mg/dL (0.70-1.30); EST CRCL DRUG DOSING (CG) 76.33 mL/min; ESTIMATED GFR 103 mL/min (>60); GLUCOSE RANDOM 95 mg/dL (80-116); POTASSIUM,K 3.5 mmol/L (3.5-5.3); SODIUM,NA 146 mmol/L (135-145)
[2023-02-23] MEDS: Albuterol 0.083% 2.5 MG/3 ML Neb Soln NEB SCH (07:36)
[2023-02-23] MEDS: CLOZAPINE 100 MG PO SCH (08:32)
[2023-02-23] MEDS: Benztropine 0.5 MG Tab PO SCH ×2 (08:34→20:21)
[2023-02-23] MEDS: Sodium Chloride 0.9% 10 ML Syringe FLUSH PRN ×2 (16:20→17:39)
[2023-02-23] MEDS: cefTRIAXone 1 GM Vial IVPUSH SCH (17:38)
[2023-02-23] MEDS: atorvaSTATin 20 MG Tab PO SCH (20:21)
[2023-02-23] MEDS: Enoxaparin 40 MG/0.4 ML Syringe SUBCUT SCH (20:22)
[2023-02-24] MEDS: metroNIDAZOLE/Normal Saline 500 MG in Premix Bag 1 BAG IV SCH ×3 (00:52→16:46)
[2023-02-24] MEDS: Sodium Chloride 0.9% 10 ML Syringe FLUSH PRN ×6 (00:52→18:42)
[2023-02-24] MEDS: Levothyroxine 75 MCG Tab PO SCH (05:44)
[2023-02-24 07:26] LABS: BASOPHILS PERCENT AUTO 0.6 % (0.3-3.8); EOSINOPHILS PERCENT AUTO 0.1 % (0.1-6.8); HEMATOCRIT 39.7 % (38.3-50.1); HEMOGLOBIN 13.3 g/dL (12.9-17.7); LYMPHOCYTES ABSOLUTE AUTO 1.4 x10-3/uL (0.5-4.5); LYMPHOCYTES PERCENT AUTO 19.6 % (15.8-45.3); MEAN CORPUSCULAR HEMOGLOBIN 29.7 pg (27.0-33.3); MEAN CORPUSCULAR HGB CONC 33.5 g/dL (28.7-35.3); MEAN CORPUSCULAR VOLUME 88.8 fL (80.8-98.7); MONOCYTES ABSOLUTE AUTO 0.7 x10-3/uL (0.0-1.2); MONOCYTES PERCENT AUTO 9.1 % (5.5-15.2); NEUTROPHILS ABSOLUTE AUTO 5.2 x10-3/uL (1.7-6.9); NEUTROPHILS PERCENT AUTO 70.6 % (40.3-71.8); PLATELET COUNT,PLT 207 x10(3)uL (117-477); RED BLOOD CELL COUNT 4.47 x10(6)uL (3.90-5.90); RED CELL DISTRIBUTION WIDTH 13.9 % (12.4-15.0); WHITE BLOOD CELL COUNT,WBC 7.3 x10-3/uL (3.2-10.1)
[2023-02-24 07:30] LABS: BLOOD UREA NITROGEN,BUN 18 mg/dL (7-18); BUN/CREATININE RATIO 22.5 (9-20); CALCIUM 9.3 mg/dL (8.6-10.2); CARBON DIOXIDE,CO2 28 mmol/L (21-32); CHLORIDE,CL 109 mmol/L (100-110); CREATININE 0.8 mg/dL (0.70-1.30); EST CRCL DRUG DOSING (CG) 76.33 mL/min; ESTIMATED GFR 103 mL/min (>60); GLUCOSE RANDOM 110 mg/dL (80-116); POTASSIUM,K 3.4 mmol/L (3.5-5.3); SODIUM,NA 146 mmol/L (135-145)
[2023-02-24] MEDS: Benztropine 0.5 MG Tab PO SCH ×2 (11:28→20:11)
[2023-02-24] MEDS: CLOZAPINE 100 MG PO SCH (11:29)
[2023-02-24] MEDS: cefTRIAXone 1 GM Vial IVPUSH SCH (18:42)
[2023-02-24] MEDS: Enoxaparin 40 MG/0.4 ML Syringe SUBCUT SCH (20:09)
[2023-02-24] MEDS: atorvaSTATin 20 MG Tab PO SCH (20:10)
[2023-02-25] MEDS: Sodium Chloride 0.9% 10 ML Syringe FLUSH PRN ×2 (01:07→09:10)
[2023-02-25] MEDS: metroNIDAZOLE/Normal Saline 500 MG in Premix Bag 1 BAG IV SCH ×2 (01:10→09:00)
[2023-02-25 06:21] LABS: BASOPHILS ABSOLUTE AUTO 0.1 x10-3/uL (0.0-0.3); BASOPHILS PERCENT AUTO 0.9 % (0.3-3.8); HEMATOCRIT 39.1 % (38.3-50.1); HEMOGLOBIN 13.3 g/dL (12.9-17.7); LYMPHOCYTES ABSOLUTE AUTO 1.5 x10-3/uL (0.5-4.5); LYMPHOCYTES PERCENT AUTO 18.9 % (15.8-45.3); MEAN CORPUSCULAR HEMOGLOBIN 29.8 pg (27.0-33.3); MEAN CORPUSCULAR HGB CONC 34.1 g/dL (28.7-35.3); MEAN CORPUSCULAR VOLUME 87.5 fL (80.8-98.7); MONOCYTES ABSOLUTE AUTO 0.7 x10-3/uL (0.0-1.2); MONOCYTES PERCENT AUTO 9.4 % (5.5-15.2); NEUTROPHILS ABSOLUTE AUTO 5.6 x10-3/uL (1.7-6.9); NEUTROPHILS PERCENT AUTO 70.8 % (40.3-71.8); PLATELET COUNT,PLT 228 x10(3)uL (117-477); RED BLOOD CELL COUNT 4.47 x10(6)uL (3.90-5.90); RED CELL DISTRIBUTION WIDTH 14.1 % (12.4-15.0); WHITE BLOOD CELL COUNT,WBC 7.9 x10-3/uL (3.2-10.1)
[2023-02-25 06:26] LABS: BLOOD UREA NITROGEN,BUN 19 mg/dL (7-18); BUN/CREATININE RATIO 21.1 (9-20); CALCIUM 9.1 mg/dL (8.6-10.2); CARBON DIOXIDE,CO2 28 mmol/L (21-32); CHLORIDE,CL 109 mmol/L (100-110); CREATININE 0.9 mg/dL (0.70-1.30); EST CRCL DRUG DOSING (CG) 67.85 mL/min; ESTIMATED GFR 99 mL/min (>60); GLUCOSE RANDOM 121 mg/dL (80-116); POTASSIUM,K 3.4 mmol/L (3.5-5.3); SODIUM,NA 146 mmol/L (135-145)
[2023-02-25] MEDS: Levothyroxine 75 MCG Tab PO SCH (06:53)
[2023-02-25] MEDS: Benztropine 0.5 MG Tab PO SCH (08:26)
[2023-02-25] MEDS: CLOZAPINE 100 MG PO SCH (08:27)
[2023-02-25 13:42] VITALS: BP 109/66; PULSE 100
== END 2023-02-25 14:13 | disposition home or self-care (01) | DRG 178 ==
LOC: FB.ED 14:03 → FB.MS 18:03
PROVIDERS: ADMIT Family Medicine; ATTEND Family Medicine
DX: J69.0 Pneumonitis due to inhalation of food and vomit (principal); J18.9 Pneumonia, unspecified organism; F84.0 Autistic disorder; E86.0 Dehydration; Z68.1 Body mass index [BMI] 19.9 or less, adult; E03.9 Hypothyroidism, unspecified; E78.2 Mixed hyperlipidemia; F31.9 Bipolar disorder, unspecified; I45.10 Unspecified right bundle-branch block; E88.09 Other disorders of plasma-protein metabolism, not elsewhere classified; R79.89 Other specified abnormal findings of blood chemistry; R74.8 Abnormal levels of other serum enzymes; K59.09 Other constipation; N32.89 Other specified disorders of bladder; R79.82 Elevated C-reactive protein (CRP); D72.829 Elevated white blood cell count, unspecified; R62.7 Adult failure to thrive; R40.0 Somnolence; I10 Essential (primary) hypertension; F09 Unspecified mental disorder due to known physiological condition; Z20.822 Contact with and (suspected) exposure to COVID-19; R29.3 Abnormal posture; F45.8 Other somatoform disorders; Z87.898 Personal history of other specified conditions; Z98.1 Arthrodesis status; Z88.8 Allergy status to other drugs, medicaments and biological substances; F20.9 Schizophrenia, unspecified; N40.0 Benign prostatic hyperplasia without lower urinary tract symptoms; Z79.899 Other long term (current) drug therapy
CPT/HCPCS: 36415; 51701; 51798; 70450; 71045; 71260; 72156; 74177; 80048; 80053; 81001; 83605; 83735; 84153; 84484; 85025; 86140; 87040; 92610-GN; 93005; 94640; 96361; 96374; 96376; 99223; 99233; 99239; 99285-25; A9270-GY; A9579; C1758; J0456; J0696; J1650; J2060; J3490; J7030; J7050; Q9967; U0002

== ENCOUNTER 2024-08-22 14:22 | Emergency (ER) | payer MEDICARE, MEDICAID ==
[2024-08-22 14:47] VITALS: BP 126/90; PULSE 88
== END 2024-08-22 15:10 | disposition home or self-care (01) ==
LOC: FB.ED 14:22
DX: S00.83XA Contusion of other part of head, initial encounter (principal); E78.00 Pure hypercholesterolemia, unspecified; E03.9 Hypothyroidism, unspecified; Z88.8 Allergy status to other drugs, medicaments and biological substances; Z79.890 Hormone replacement therapy; Z79.899 Other long term (current) drug therapy; W05.0XXA Fall from non-moving wheelchair, initial encounter
CPT/HCPCS: 99283